=== PATIENT | male | born 1980 | race Caucasian/White ===

== ENCOUNTER 2022-02-17 15:59 | Emergency (ER) | payer OTHER, SELFPAY ==
[2022-02-17 16:12] VITALS: BP 150/83; PULSE 85; RESP 16; TEMP 36.8; O2SAT 98
--- NOTE | 2022-02-17 16:12 | ED.URI ---
HPI - URI/Sore Throat General Chief Complaint: Upper Respiratory Infection Stated Complaint: Cough,Headache Time Seen by Provider: 02/17/22 16:28 Source: patient and RN notes reviewed Mode of arrival: ambulatory Limitations: no limitations History of Present Illness HPI Narrative: 41-year-old male presents concern for 2 week history of cough. He reports trying multiple [id number] medications without relief. Reports violent coughing that keeps him awake at night. He denies fever, aches chills, sweats. MD elicited complaint: cough Related Data Home Medications Medication Instructions Recorded Confirmed fluoxetine 10 mg capsule 10 mg PO DAILY 02/17/22 02/17/22 hydrocodone 7.5 mg-acetaminophen 1 tablet PO Q8-10H PRN Back Pain 02/17/22 02/17/22 325 mg tablet pantoprazole 40 mg tablet,delayed 40 mg PO DAILY 02/17/22 02/17/22 release Allergies Allergy/AdvReac Type Severity Reaction Status Date / Time No Known Allergies Allergy Verified 02/17/22 16:12 Review of Systems Review of Systems: CONSTITUTIONAL: Reports malaise. Denies chills, sweats, or fever. EYES: Denies visual changes, redness, or discharge. ENT: Denies rhinorrhea, congestion, sinus pain, otalgia and sore throat. CARDIOVASCULAR: Denies chest pain, palpitations, or edema. RESPIRATORY: Reports persistent cough. Denies dyspnea. GASTROINTESTINAL: Denies abdominal pain, nausea, vomiting, diarrhea SKIN: Denies rash or itching. MUSCULOSKELETAL: Denies myalgia. NEUROLOGIC: Reports headache. All systems reviewed & are unremarkable except as noted in HPI and below [facility] Family History Family History (Updated 12/26/17 @ 16:35 by DOCTOR UNKNOWN) Father Family history of pancreatic cancer Family history of chronic obstructive pulmonary disease Family history of lung cancer Grandparent Diabetes mellitus Other Family history of allergic disorder Family history of cardiovascular disease Social History Social History Smoking status: Never smoker Second hand tobacco smoke exposure: No Alcohol intake: current Comments At time of signature, agree with nursing past medical, surgical, social and family history. There is no relevant family history pertinent to the presenting complaint Exam Narrative: GENERAL: Nontoxic-appearing and in no acute distress. HEAD: Normocephalic EYES: PERRLA, conjunctivae clear ENT: Nares clear, turbinates edematous and erythematous, clear discharge. Mucous membranes moist. TM pearly carpio with dull light reflex bilaterally; no tragal tenderness. Oropharynx not erythematous without lesions. Tonsils not enlarged and without exudate, no drooling, no hoarseness, no trismus, uvula midline. NECK: Supple. No lymphadenopathy CHEST: Clear to auscultation, breath sounds equal. No wheezing, rhonchi, rales, or stridor. No respiratory distress, speaks in full sentences. Upper airway congestion with cough noted HEART: Regular rate and rhythm. No murmur heard. SKIN: Warm, dry, no rash. NEURO: Alert and oriented x3. PSYCH: Normal mood and affect Course Course Emergency Course: Patient is aware of diagnosis, understands and agrees to treatment plan. Anticipatory guidance given. Patient agrees to follow-up as directed and is aware of reasons to seek care at the emergency department. Portions of this record may have been created with voice recognition software Level of Care: Express Care Visit Vital Signs Vital signs: Reviewed. MDM - URI/Sore Throat MDM Narrative Medical decision making narrative: Differential diagnosis considered: Mcbride virus, strep pharyngitis, allergic rhinitis, upper respiratory tract infection, sinusitis, rhinosinusitis, nasopharyngitis. viral pharyngitis, otitis media, otitis externa, pneumonia, bronchitis, viral cough syndrome, viral syndrome, and influenza. Exam findings show no acute concerns or changes; patient is non-toxic appearing and is in no distress. Patient is appropriate for outp
[2022-02-17 16:13] VITALS: BP 150/83; PULSE 85; RESP 16; TEMP 36.8; O2SAT 98
== END 2022-02-17 16:37 | disposition home or self-care (01) ==
PROVIDERS: Emergency Provider Nurse Practitioner; PCP Nurse Practitioner Family
DX: J06.9 Acute upper respiratory infection, unspecified (principal); K21.9 Gastro-esophageal reflux disease without esophagitis; F41.9 Anxiety disorder, unspecified; F32.A Depression, unspecified; Z86.16 Personal history of COVID-19
CPT/HCPCS: 99213; G0463

== ENCOUNTER 2024-07-02 13:45 | Emergency (ER) | payer OTHER, SELFPAY ==
--- OUTSIDE RECORDS SUMMARY | 2024-07-02 13:50 | XMS_ITS | Clinical Summary ---
Author Organization [facility] [place] Address [address] [place] [address] Care Team Providers Care Carrier Blower Name Role Phone Paradise Lombardi RENEE Primary Care Provider [phone] Allergies No known active allergies Medications Vitamin D3 (VITAMIN D) 50 mcg tablet Take 1 tablet (50 mcg total) by mouth daily. Active multi vitamin/minerals (THERA-M ENHANCED) tablet Take 1 tablet by mouth daily. Active naloxone (NARCAN) 4 MG/0.1ML nasal spray 1 spray by Nasal route as needed for Opioid reversal. may repeat every 2 to 3 minutes in alternating nostrils until medical assistance becomes available 1 each 11/11/19 24 025 Active Additional Information Patient not taking.Reported on 04/20/2024 BONE STIMULATOR, DME,Indications:S renetta instabilities of lumbar region Wear 4 hours daily. Can break up into multiple sessions totaling 4 hours. 1 Device 02/15/19 25 Active Misc. Devices MiscIndications:S renetta instabilities of lumbar region 1 each by Does not apply route continuous. LSO for continuous wear while ambulating or up in chair. 1 each 02/15/19 25 Active calcium-magnesium -zinc 333-133-5 MG Tab Take 1 tablet by mouth daily. Active orphenadrine ER (NORFLEX) 100 MG TABLET SR 12 HR 12 hr tabletIndications :S/P lumbar spinal fusion Take 1 tablet (100 mg total) by mouth 2 (two) times daily as needed. 60 tablet 1 04/09/19 25 Active FLUoxetine (PROZAC) 40 MG capsuleIndication s:Current moderate episode of major depressive disorder without prior episode (CMS/HCC),Anger,A nxiety Take 2 capsules (80 mg total) by mouth daily. 180 capsule 3 04/21/19 25 Active phentermine (ADIPEX-P) 37.5 MG tabletIndications :Class 1 obesity due to excess calories with serious comorbidity and body mass index (BMI) of 31.0 to 31.9 in adult Take 1 tablet (37.5 mg total) by mouth every morning before breakfast. 30 tablet 07/03/19 25 Active HYDROcodone-aceta minophen (NORCO) 5-325 MG tabletIndications :Chronic Pain Take 1 tablet by mouth every 8 (eight) hours as needed (severe pain). Indications: Chronic Pain Twenty-one tablets. 60 tablet 07/03/19 25 Active phentermine (ADIPEX-P) 37.5 MG tabletIndications :Class 1 obesity due to excess calories with serious comorbidity and body mass index (BMI) of 31.0 to 31.9 in adult Take 1 tablet (37.5 mg total) by mouth every morning before breakfast. 30 tablet 04/25/19 25 025 Discontin ued(Reord er) HYDROcodone-aceta minophen (NORCO) 5-325 MG tabletIndications :Chronic Pain Take 1 tablet by mouth every 8 (eight) hours as needed (severe pain). Indications: Chronic Pain Twenty-one tablets. 60 tablet 05/25/19 25 025 Discontin ued(Reord er) phentermine (ADIPEX-P) 37.5 MG tabletIndications :Class 1 obesity due to excess calories with serious comorbidity and body mass index (BMI) of 31.0 to 31.9 in adult Take 1 tablet (37.5 mg total) by mouth every morning before breakfast. 30 tablet 06/05/19 25 025 Discontin ued(Reord er) HYDROcodone-aceta minophen (NORCO) 5-325 MG tabletIndications :Chronic Pain Take 1 tablet by mouth every 8 (eight) hours as needed (severe pain). Indications: Chronic Pain Twenty-one tablets. 60 tablet 06/14/19 25 025 Discontin ued(Reord er) Active Problems Problem Noted Date Diagnosed Date S/P lumbar laminectomy 04/09/2024 S/P lumbar spinal fusion 03/28/2024 Cervicalgia 01/11/2024 Spinal stenosis of cervical region 01/11/2024 Cubital tunnel syndrome on left 10/19/2023 Numbness and tingling in left arm 08/24/2023 Left elbow pain 08/24/2023 Paresthesia of hand, bilateral 08/24/2023 Class 1 obesity due to exces s calories with serious comorbidity and body mass index (BMI) of 31.0 to 31.9 in adult 11/08/2022 Hemorrhoids, unspecified hemorrhoid type 023 Dyslipidemia 11/08/2022 Low serum testosterone 09/01/2022 Skin lesions 04/09/2022 Spondylolisthesis of lumbar region 11/02/2021 Pars defect of lumbar spine 11/02/2021 Spinal instabilities of lumbar region 11/02/2021 Other intervertebral disc degeneration, lumbar r egion 11/02/2021 Radiculopathy, lumbar region 11/02/2021 Myelopathy ([facility]) 11/02/2021 Anger 05/17/2021 Gastroesophageal reflux dise ase, unspecified whether esophagitis present 05/17/2021 B12 deficiency 05/17/2021 Lumbar spondylosis 07/24/2020 Overview (05/14/2021): Last Assessment & Plan: Lumbar spondylosis is demonstrated on x-ray at L4-5 and L5-S1 Protrusion of intervertebral disc of lumbosacral region 05/15/2020 Closed displaced fracture of base of fifth metacarpal bone of right hand with malunion, subsequent encounter 05/15/2020 Vitamin D deficiency 04/29/2020 Anxiety 04/29/2020 Current moderate episode of major depressive disorder without prior episode 04/29/2020 Chronic midline low back pain without sciatica 0 04/29/2020 Chronic neck pain 04/29/2020 History of hernia surgery 04/29/2020 Hx of fracture of clavicle 04/29/2020 Resolved Problems Problem Noted Date Diagnosed Date Resolved Date S/P lumbar fusion 03/27/2024 05/17/2024 Foraminal stenosis of lumbar region 11/02/2021 05/17/2024 Erectile dysfunction, unspec ified erectile dysfunction type 05/05/2020 04/20/2024 Encounter for medical examin ation to establish care 04/29/2020 05/05/2020 Class 1 obesity due to exces s calories without serious comorbidity with body mass index (BMI) of 33.0 to 33.9 in adult 04/29/2020 Encounters Date Type Department Care Team Description 05/24/2024 Orders Only [facility] Family & Internal Medicine [address] [phone] Paradise Lombardi FNP 05/23/2024 MyChart Message Enc [facility] Family & Internal [address] [phone] Paradise Lombardi FNP Pain med 05/21/2024 MyChart Message Enc [facility] [address], [address] [place] [address] Ryan [facility] Provider Letter 05/18/2024 Telephone [facility] [address] [place] [address] Nicole Robins LATHE SPOTTER Results 05/18/2024 [facility] [address], [address] [place] [address] Nicole Robins LATHE SPOTTER Follow Up Call 05/17/2024 11:14 AM CDT - 05/17/2024 11:59 PM CDT Hospital Encounter [facility] [address] [place] [address] Nicole Robins, LATHE SPOTTER Discharge Disposition: Home or Self Care (Routine Discharge) 05/17/2024 10:40 AM CDT [facility] [address] [place] [address] Nicole Robins, LATHE SPOTTER Post Operative 05/17/2024 Travel 05/09/2024 Telephone [facility] Family & Internal [address] [phone] Paradise Lombardi FNP Lab Results 04/30/2024 Scan [facility] Scanned, [facility] 04/30/[address], [address] [place] [phone] Nicole Robins APRN Question 04/24/2024 9:20 AM CDT Laboratory Only [facility] Family Internal [address] [address] Paradise Lombardi FNP 04/24/2024 - 04/24/2024 11:59 PM CDT Hospital Encounter [facility] [address] Paradise Lombardi FNP Discharge Disposition: Home or Self Care (Routine Discharge) 04/24/2024 Travel 04/20/2024 1:40 PM ACID TANK CLEANER Office Visit [facility] Family & Internal [address] [address] Paradise Lombardi FNP Depression (Patient would like to discuss increasing fluoxetine dosage or alternative therapies.); Anxiety; Low Testosterone (Patient states he needs to follow up with urology still.) 04/20/2024 Travel 04/19/2024 Telephone [facility] - [address], [address] [place] [phone] Gage Amaya MD Question 04/17/2024 Scan [facility] Scanned, [facility] 04/16/2024 Telephone [facility] [address], [address] [place] [address] Nicole Robins APRN Referral; Information 04/09/2024 1:40 PM ACID TANK CLEANER Office Visit [facility] [address], [address] [place] [address] Nicole Robins, LATHE SPOTTER Post Operative 04/09/2024 Travel from Last 3 Months Immunizations Immunization Administration Dates Next Due Fluzone 6 Months+ Quad (0.5 mL Prefilled Syringe ) 04/06/2022 Influenza Adult (Generic) 12/06/2019,12/11/2018 Td 09/11/2006 Tdap (Generic) 03/29/2014 Family History Medical History Relation Comments COPD Father Cancer Father Pancreas Disease Father Relation Status Comments Daughter 1 Alive Oldest- Attentio n deficit hyperactivity disorder Daughter 2 Alive Father Alive throat, lunch ca ncer Mother Alive Sister Alive Son Alive Social History Tobacco Use Types Packs/Day Years Used Date Smoking Tobacco: Never Passive Smoke Exposure: Never Smokeless Tobacco: Never Tobacco Cessation:Counseling Given: No Alcohol Use Standard Drinks/Week Comments Yes 10 (1 standard drink = 0.6 oz pu re alcohol) social 1 x week [facility] Utilities Answer Date Recorded In the past 12 months has e [employer], gas, oil, or water [employer] threatened to shut off services in your home? No 03/27/2024 Humiliation, Afraid, Rape, and Kick questionnair e Answer Date Recorded Within the last year, have y ou been afraid of your partner or ex-partner? No 03/27/2024 Within the last year, have y ou been humiliated or emotionally abused in other ways by your partner or ex-partner? No Within the last year, have y ou been kicked, hit, slapped, or otherwise physically hurt by your partner or ex-partner? No 03/27/2024 Within the last year, have y ou been raped or forced to have any kind of sexual activity by your partner or ex-partner? No 03/27/2024 Overall Financial Resource Strain (CARDIA) Answe r Date Recorded How hard is it for you to pa y for the very basics like food, housing, medical care, and heating? Not hard at all 03/27/2024 PHQ-2 Answer Date Recorded Patient Health Questionnaire-2 Score 1 04/20/2024 Hunger Vital Sign Answer Date Recorded Within the past 12 months, y ou worried that your food would run out before you got the money to buy more. Never true 03/27/19 25 Within the past 12 months, t he food you bought just didn't last and you didn't have money to get more. Never true 03/27/2024 PRAPARE - Transportation Answer Date Re corded In the past 12 months, has l ack of transportation kept you from medical appointments or from getting medications? No 03/17 In the past 12 months, has l ack of transportation kept you from meetings, work, or from getting things needed for daily living? No 03/27/2024 Housing Stability Vital Sign Answer Douglas e Recorded In the last 12 months, was t here a time when you were not able to pay the mortgage or rent on time? No 03/27/2024 In the past 12 months, how m any times have you moved where you were living? 0 03/27/2024 At any time in the past 12 [facility], were you homeless or living in a halfway (including now)? No 03/27/2024 Sex and Gender Information Value Date Recorded Sex Assigned at Male 03/13/2024 1:00 PM ACID TANK CLEANER Legal Sex Male 5:23 PM CDT Gender Identity Male 04/20/2024 1:53 PM ACID TANK CLEANER Sexual Orientation Not on file Last Filed Vital Signs Vital Sign Reading Time Taken Comments Blood Pressure 139/84 05/17/2024 10:51 AM CDT Pulse 67 05/17/2024 10:51 AM CDT Temperature 36.7 C (98 F) 05/17/2024 10:51 AM CDT Respiratory Rate 18 04/20/2024 1:55 PM ACID TANK CLEANER Oxygen Saturation 97% 05/17/2024 10: 51 AM CDT Inhaled Oxygen Concentration - - Weight 108.3 kg (238 lb 11.2 oz) 2024 10:51 AM CDT Height 180.3 cm (5' 11 ) 05/17/2024 10: 51 AM CDT Body Mass Index 33.29 05/17/2024 10:51 AM CDT Plan of Treatment Upcoming Encounters Date Type Department Care Team (Late st Contact Info) Description 07/24/2024 2:00 PM CDT Office Visit [facility] Family & Internal Medicine - [address] [place] [address] Kelsy Paradise, RENEE [facility] [place] [address] Health Maintenance Due Date Last Done Comments Annual Physical 02/19/1984 Hepatitis B Vaccines (1 of 3 - 19+ 3-dose series) 02/19/2000 DTaP, Tdap and Td Vaccines ( 2 - Td or Tdap) 03/29/2024 03/29/2014, 09/11/2006 COVID-19 Vaccine (2023-2 5 season) 2024 Postponed from 10/15 (Patient Refused) Hepatitis C Completed 06/05/2022 PHQ-2 (Physician [place]) Completed 04/20/2024 HPV Vaccines Aged Out No longer eligi ble based on patient's age to complete this topic Meningococcal B Vaccine Aged Out No l onger eligible based on patient's age to complete this topic Meningococcal Vaccine Aged Out No viktor erd eligible based on patient's age to complete this topic Pneumococcal Vaccine: Pediatrics (0 to 5 Years) and At-Risk Patients (6 to 49 Years) Aged Out No longer eligible b ased on patient's age to complete this topic RSV Immunizations Under 20 Months Aged Out No longer eligible b ased on patient's age to complete this topic Goals Goal Patient Goal Type Associated Problems Recent Progress Patient-Stated? Author Family - family caregiver with be involved in care transitions and discharge planning Lifestyle No Gunner Renner, RN Medical Devices Implanted Type Area Potato Grader Device Identifier Shelf Expiration Date Model / Serial / Lot Putty Emely Matrix Dbm/Dbf Bone 6cc - [id number] Implanted:Qty : 1 on 03/26/2024 by Gage Amaya MD at [facility] Bone N/A: Spine Lumbar [employer] [id number] 12/01/2025 [id number] / [id number] / Medtronic Cataly Interbody System Pl40 Implanted:Qty : 1 on 03/26/2024 by Gage Amaya MD at [facility] Cage N/A: Spine Lumbar [employer] [id number] 10/26/2031 [id number] / / [id number] Description:L4-5 4.75 X 35 Mm Mayo Implanted:Qty : 1 on 03/26/2024 by Gage Amaya MD at [facility] Mayo Left: Spine Lumbar [employer] [id number] / / 4.75 X 40 Mm Mayo Implanted:Qty : 1 on 03/26/2024 by Gage Amaya MD at [facility] Mayo Right: Spine Lumbar [employer] [id number] / / 7.5 X 40 Mm Screws Implanted:Qty : 2 on 03/26/2024 by Gage Amaya MD at [facility] Screw N/A: Spine Lumbar [employer] [id number] / / 7.5 X 45 Mm Screws Implanted:Qty : 2 on 03/26/2024 by Gage Amaya MD at [facility] Screw N/A: Spine Lumbar [employer] [id number] / / Stimulan Beads Implanted:Qty : 1 on 03/26/2024 by Gage Amaya MD at [facility] N/A: Spine Lumbar [employer] [id number] 05/14/2026 [id number] / / [id number] Description:MIXED WITH TOBRA MYCIN AND VANCOMYCIN Voyager Set Screws Implanted:Qty : 4 on 03/26/2024 by Gage Amaya MD at [facility] N/A: Spine Lumbar [employer] [id number] / / Procedures Procedure Name Priority Date/Time Associated Diagnosis Comments XR LUMB SPINE AP+LAT ONLY Routine 05/17/2024 11:33 AM CDT S/P lumbar spinal fusion COLLECTION VENOUS BLOOD VENIPUNCTURE Routine 04/24/2024 9:45 AM CDT Anxiety Class 1 obesity due to excess calories with serious comorbidity and body mass index (BMI) of 33.0 to 33.9 in adult Dyslipidemia Current moderate episode of major depressive disorder without prior episode (CMS/HCC) Low serum testosterone B12 deficiency Vitamin D deficiency CBC W/DIFF AUTOMATED Routine 04/24/2024 9:45 AM CDT Current moderate episode of major depressive disorder without prior episode (CMS/HCC) Dyslipidemia LIPID PANEL Routine 04/24/2024 9:45 AM CDT Current moderate episode of major depressive disorder without prior episode (CMS/HCC) Dyslipidemia VITAMIN D, 25 OH Routine 04/24/2024 9:45 AM CDT Current moderate episode of major depressive disorder without prior episode (CMS/HCC) Vitamin D deficiency URIC ACID BLOOD Routine 04/24/2024 9:45 AM CDT Current moderate episode of major depressive disorder without prior episode (CMS/HCC) Dyslipidemia COMPREHENSIVE METABOLIC PANEL Routine 04/24/2024 9:45 AM CDT Current moderate episode of major depressive disorder without prior episode (CMS/HCC) Dyslipidemia URINALYSIS, AUTO, COMPLETE Routine 04/24/2024 9:45 AM CDT Current moderate episode of major depressive disorder without prior episode (CMS/HCC) Dyslipidemia VITAMIN B-12 Routine 04/24/2024 9:45 AM CDT Current moderate episode of major depressive disorder without prior episode (CMS/HCC) Anxiety B12 deficiency FOLIC ACID SERUM Routine 04/24/2024 9:45 AM CDT Current moderate episode of major depressive disorder without prior episode (CMS/HCC) Anxiety B12 deficiency MAGNESIUM Routine 04/24/2024 9:45 AM CDT Current moderate episode of major depressive disorder without prior episode (CMS/HCC) Anxiety PROLACTIN Routine 04/24/2024 9:45 AM CDT Current moderate episode of major depressive disorder without prior episode (CMS/HCC) Low serum testosterone THYROID STIM HORMONE TSH Routine 04/24/2024 9:45 AM CDT Anxiety Class 1 obesity due to excess calories with serious comorbidity and body mass index (BMI) of 33.0 to 33.9 in adult Dyslipidemia THYROXINE, FREE (FT4) Routine 04/24/2024 9:45 AM CDT Anxiety Class 1 obesity due to excess calories with serious comorbidity and body mass index (BMI) of 33.0 to 33.9 in adult Dyslipidemia THYROID PEROXIDASE ANTIBODY Routine 04/24/2024 9:45 AM CDT Anxiety Class 1 obesity due to excess calories with serious comorbidity and body mass index (BMI) of 33.0 to 33.9 in adult Dyslipidemia FREE T3 Routine 04/24/2024 9:45 AM CDT Anxiety Class 1 obesity due to excess calories with serious comorbidity and body mass index (BMI) of 33.0 to 33.9 in adult Dyslipidemia TESTOSTERONE, FREE & TOTAL Routine 04/24/2024 9:30 AM CDT Current moderate episode of major depressive disorder without prior episode (CMS/HCC) HEPATITIS C ANTIBODY W/RFX TO HCV RNA Routine 06/05/2022 8:16 AM CDT Encounter for hepatitis C screening test for low risk patient from Last 3 Months or Most Recently Relevant to Health Maintenance Results * XR LUMB SPINE AP+LAT ONLY (05/17/2024 11:33 AM CDT) Anatomical Region Laterality Modality Spine Radiographic Jess ging 05/18/2024 8:13 AM CDT Impressions 05/18/2024 8:13 AM CDT =====IMPRESSION:===== 1. Posterior/interbody fusion L4-5 without evidence of complication. Ordered By: NICOLE ROBINS Interpreted By: Geoffrey Estrada MD, 05/18/2024 8:13 AM Narrative 05/18/2024 8:13 AM CDT [address] [address] Examination: Lumbar Spine 2 views Exam date/time: 05/17/2024 11:18 AM Reason For Exam: sp lumbar fusion Comparison: 03/27/2024 Views: AP, lateral and cone-down detailed lateral radiographs of the lumbar spine were obtained Findings: Posterior skin clips and drainage catheter have been removed. There is evidence of posterior/interbody fusion L4-5. There is no evidence of complication involving the hardware. There is minimal residual anterior translation of L4 on L5 unchanged. No evidence of acute fracture or focal lytic bone destructive lesion. Procedure Note Geoffrey Estrada MD - 05/18/[address] [address] Examination: Lumbar Spine 2 views Exam date/time: 05/17/2024 11:18 AM Reason For Exam: sp lumbar fusion Comparison: 03/27/2024 Views: AP, lateral and cone-down detailed lateral radiographs of thelumbar spine were obtained Findings: Posterior skin clips and drainage catheter have been removed.There is evidence of posterior/interbody fusion L4-5. There is no evidenceof complication involving the hardware. There is minimal residual anteriortranslation of L4 on L5 unchanged. No evidence of acute fracture or focallytic bone destructive lesion. =====IMPRESSION:===== 1. Posterior/interbody fusion L4-5 without evidence of complication. Ordered By: NICOLE ROBINS Interpreted By: Geoffrey Estrada MD, 05/18/2024 8:13 AM Nicole Rafael Robins LATHE SPOTTER [facility] Final Resu lt * THYROID PEROXIDASE ANTIBODY (04/24/2024 9:45 AM CDT) THYROID PEROXIDASE MICROSOMAL AB 34 IU/ML 04/26/2024 10:56 AM CDT [facility] Comment: NEGATIVE: < 25 IU/ML EQUIVOCAL: 25 to 35 IU/ML POSITIVE: > 35 IU/ML 04/24/2024 9:45 AM CDT Paradise Kelsy CLINICAL OPERATIONS MANAGER LABORATORY Final Result [facility] [address] [place] [address], [place] [phone] [phone] * (ABNORMAL) URINALYSIS (04/24/2024 9:45 AM CDT) COLOR (U) YELLOW 04/24/2024 5:05 PM CDT [facility] TRANSPARENCY CLEAR CLEAR 04/24/2024 5:05 PM CDT [facility] SPECIFIC GRAVITY (U) 1.025 1.003 - 1.040 04/24/2024 5:05 PM CDT [facility] U PH 6.0 5.0 - 9.0 04/24/2024 5:05 PM CDT [facility] PROTEIN RANDOM (U) NEGATIVE NEGATIVE 04/24/2024 5:05 PM CDT [facility] GLUCOSE (U) NEGATIVE NEGATIVE 04/24/2024 5:05 PM CDT [facility] KETONES MG/DL (U) NEGATIVE NEGATIVE 04/24/2024 5:05 PM CDT [facility] BILIRUBIN (U) NEGATIVE NEGATIVE 04/24/2024 5:05 PM CDT [facility] BLOOD (U) NEGATIVE NEGATIVE 04/24/2024 5:05 PM CDT [facility] UROBILINOGEN 0.2 0.0 - 2.0 EU/DL 04/24/2024 5:05 PM CDT [facility] NITRITES NEGATIVE NEGATIVE 04/24/2024 5:05 PM CDT [facility] LEUKOCYTES (U) NEGATIVE NEGATIVE 04/24/2024 5:05 PM CDT [facility] RBC/HPF 0-3 0 - 3 /HPF 04/24/2024 5:05 PM CDT [facility] WBC/HPF 0-3 0 - 3 /HPF 04/24/2024 5:05 PM CDT [facility] EPI/HPF 0-3 /HPF 04/24/2024 5:05 PM CDT [facility] BACTERIA (U) TRACE(A) NONE SEEN 04/24/2024 5:05 PM CDT [facility] MUCUS FEW 04/24/2024 5:05 PM CDT [facility] URINE SPECIMEN OBTAINED BY CLEAN CATCH PROCEDURE / Unknown 04/24/2024 9:45 AM CDT Paradise SANTIAGOP URINE ORDERABLES Final Result Performing Organization Address City/[facility]/ZIP Co de Phone Number [address] [address], * VITAMIN B-12 (04/24/2024 9:45 AM CDT) VITAMIN B12 S/P/B 888 193 - 986 PG/ML 04/24/2024 4:14 PM CDT [facility] 04/24/2024 9:45 AM CDT Paradise Lombardi [facility] Final Result Performing Organization Address City/[facility]/ZIP Co de Phone Number [id number] [place] [address], [place] [phone] * FREE T3 (04/24/2024 9:45 AM CDT) FREE T3 2.6 2.2 - 3.9 PG/ML 04/24/2024 6:26 PM CDT [facility] 04/24/2024 9:45 AM CDT Paradise Lombardi [facility] Final Result [facility] [address] [place] [address], [place] [phone] [id number] * (ABNORMAL) COMPREHENSIVE METABOLIC PANEL (04/24/2024 9:45 AM CDT) Pathologist [facility] SODIUM S/P/B 142 136 - 145 MMOL/L 04/24/2024 4:14 PM CDT [facility] POTASSIUM S/P/B 4.5 3.5 - 5.1 MMOL/L 04/24/2024 4:14 PM CDT [facility] CHLORIDE S/P/B 106 98 - 107 MMOL/L 04/24/2024 4:14 PM CDT [facility] CO2 27.6 21 - 32 MMOL/L 04/24/2024 4:14 PM CDT [facility] GLUCOSE 112(H) 70 - 99 MG/DL 04/24/2024 4:14 PM CDT [facility] BUN 17 7 - 18 MG/DL 04/24/2024 4:14 PM CDT [facility] CREATININE S/P/B 0.92 0.70 - 1.30 MG/DL 04/24/2024 4:14 PM CDT [facility] CALCIUM S/P/B 9.0 8.4 - 10.5 MG/DL 04/24/2024 4:14 PM CDT [facility] BILIRUBIN TOTAL S/P/B 0.4 0.2 - 1.0 MG/DL 04/24/2024 4:14 PM T [facility] ALKALINE PHOSPHATASE S/P/B 88 45 - 115 U/L 04/24/2024 4:14 PM T [facility] [facility] AST 16 15 - 37 U/L 04/24/2024 4:14 PM CDT [facility] ALT 32 16 - 63 U/L 04/24/2024 4:14 PM T [facility] TOTAL PROTEIN S/P/B 6.9 6.4 - 8.2 G/DL 04/24/2024 4:14 PM T [facility] ALBUMIN S/P/B 3.9 3.4 - 5.0 G/DL 04/24/2024 4:14 PM T [facility] ANION GAP 8.4 5 - 15 MMOL/L 04/24/2024 4:14 PM T [facility] Comment:REFERENCE RANGE NOT ESTABLISHED OSMOLALITY (CALC) 296 MOSM/KG 025 4:14 PM T [facility] Comment:REFERENCE RANGE NOT ESTABLISHED GFR ESTIMATE >90 >90 ML/MIN/1. 73 M2 04/24/2024 4:14 PM [facility] GFR NOTES GFR REFERENCE S: 04/24/2024 4:14 PM T [facility] Comment: THE ESTIMATED GFR IS CALCULATED USING THE 2020 CKD-EPI EQUATION. THE FOLLOWING CATEGORIES FOR GRADING RENAL FUNCTION ARE RECOMMENDED BY THE INTERNATIONAL SOCIETY OF NEPHROLOGY (KDIGO 2012 CLINICAL PRACTICE GUIDELINE). G1,NORMAL OR HIGH: >89 ml/min/1.73 m2 G2,MILDLY DECREASED: 60-89 ml/min/1.73 m2 G3A,MILDLY TO MODERATELY DECREASED: 45-59 ml/min/1.73 m2 G3B,MODERATELY TO SEVERELY DECREASED: 30-44 ml/min/1.73 m2 G4,SEVERELY DECREASED: 15-29 ml/min/1.73 m2 G5,KIDNEY FAILURE: <15 ml/min/1.73 m2 04/24/2024 9:45 AM CDT Paradise Lombardi CLINICAL OPERATIONS MANAGER LABORATORY Final Result [facility] [address] [place] [address], * (ABNORMAL) LIPID PANEL (04/24/2024 9:45 AM CDT) [facility] CHOLESTEROL 234(H) <200 MG/DL 04/24/2024 4:14 PM CDT [facility] TRIGLYCERIDES 94 <150 MG/DL 04/24/2024 4:14 PM CDT [facility] HDL 52 >40 MG/DL 04/24/2024 4:14 PM CDT [facility] LDL-C 163(H) <100 MG/DL 04/24/2024 4:14 PM CDT [facility] VLDL CALCULATION 19 5 - 28 MG/DL 04/24/2024 4:14 PM CDT [facility] CHOL/HDL RATIO 4.5(H) 0.0 - 4.0 04/24/2024 4:14 PM CDT [facility] LDL/HDL 3.1(H) 0.41 - 2.13 04/24/2024 [id number]|2024-07-02 13:53:00|2024-07-02 13:53:00|ED_ITS|[employer]|Health Information Management|[id number]|"HPI - URI/Sore Throat General Chief Complaint: Upper Respiratory Infection Stated Complaint: URI Time Seen by Provider: 07/02/24 13:45 Source: patient Mode of arrival: ambulatory Limitations: no limitations History of Present Illness HPI Narrative: Patient is a 44-year-old male who presents with 4 days of chest congestion with productive cough and sore throat that started 2 days ago. Cold sweats and body aches started today. History of childhood asthma and bronchitis. Has taken Mucinex with no relief. Related Data Home Medications Medication Instructions Recorded Confirmed Last Taken Type fluoxetine 10 mg capsule 10 mg PO DAILY 02/17/22 02/17/22 Unknown History hydrocodone 7.5 mg-acetaminophen 1 tablet PO Q8-10H PRN Back Pain 02/17/22 02/17/22 Unknown History 325 mg tablet fluoxetine 20 mg capsule mg 07/02/24 Unknown History phentermine 37.5 mg tablet mg 07/02/24 Unknown History Allergies Allergy/AdvReac Type Severity Reaction Status Date / Time No Known Allergies Allergy Verified 07/02/24 13:59 Review of Systems Review of Systems: All systems reviewed & are unremarkable except as noted in HPI and below Constitutional: Constitutional: Reports chills, Denies fatigue, Denies fever(s), Denies headache(s), Denies malaise and Denies weakness Eyes: Eyes: Denies blurry vision, Denies itchy eyes and Denies loss of vision ENT: Denies otalgia, Denies headache(s), Reports nasal congestion, Denies sinus pain and Reports sore throat Cardiovascular: Cardiovascular: Denies chest pain, Denies irregular heart rhythm and Denies dyspnea Respiratory: Respiratory: Reports cough and Denies dyspnea Gastrointestinal: Gastrointestinal: Denies abdominal pain, Denies diarrhea, Denies nausea and Denies vomiting Musculoskeletal: Musculoskeletal: Denies back pain, Reports myalgias and Denies arthralgias Integumentary/Breasts: Skin/Breast: Denies pruritus and Denies rash Neurologic: Denies headache(s), Denies loss of vision and Denies weakness Psychiatric: Psychiatric: Reports no additional psychiatric complaints Endocrine: Endocrine: Denies fatigue Allergic/Immunologic: Allergic/Immunologic: Denies itchy eyes PMFSH Family History Family History Father Family history of pancreatic cancer Family history of chronic obstructive pulmonary disease Family history of lung cancer Grandparent Diabetes mellitus Other Family history of allergic disorder Family history of cardiovascular disease Social History Social History Smoking status: Never smoker Second hand tobacco smoke exposure: No Alcohol intake: current Comments At time of signature, agree with nursing past medical, surgical, social and family history. There is no relevant family history pertinent to the presenting complaint. Exam Const: General: cooperative, healthy appearing, comfortable, no acute distress and well nourished Nutritional Appearance: well nourished Orientation/consciousness: patient oriented x3 Limitations: no limitations HENMT: Head: normal to inspection, normocephalic and atraumatic Ears: hearing grossly normal bilaterally, external ears normal, TM's normal bilaterally, EAC's normal and no periauricular adenopathy Face/Nose/Sinus: Normal external nose present, Abnormal mucous membranes and turbinates present erythematous bilateral and diffuse, normal facial exam, sinuses nontender and face symmetric Face and sinus: normal facial exam, sinuses nontender and face symmetric Mouth: Yes Normal oral and palatal mucosa present, Yes lip normal, Yes tongue normal, Yes Normal salivary glands and ducts present, Yes oropharynx normal and Yes moist mucous membranes Teeth and gingiva: dentition normal Throat: posterior oropharynx normal, tonsils normal and uvula midline Eyes: General: appearance normal, both eyes and all related structures Alignment and Position: alignment normal and position normal Periorbital: periorbital findings normal Eyelids: eyelids normal Pupils: Equal, round and reactive pupils present Neck: Neck: normal visual inspection, full ROM, no lymphadenopathy and supple Chest: Chest palpation & inspection: normal inspection of the chest and normal palpation of entire chest wall Resp: Effort & Inspection: normal respiratory effort, able to speak in complete sentences and Actively coughing wet Auscultation: clear to auscultation bilaterally, no crackles, no rales, no rhonchi and no wheezes Cardio: Rate: tachycardic Rhythm: regular rhythm Heart sounds: S1 normal heart sound present and S2 normal heart sound present GI: Inspection: normal to inspection Skin: General skin exam: normal color and no rashes or lesions noted Neuro: General: patient oriented x3 and moves all extremities Cranial nerves: Yes Equal, round and reactive pupils present Speech: normal speech Gait exam (Neuro): Normal gait present Extrem: General: normal to inspection, full ROM and no edema Psych: Appearance: grossly normal and well kempt Mental Status: mental status grossly normal Speech and movement: Normal speech and movement present Affect: normal affect Attitude: cooperative Thought process: Normal thought process present Course Course Emergency Course: Discharge instructions reviewed with patient, as well as provided in writing per nursing staff. The instructions also include specific and strict return/GO TO THE ER as well as f/u information. All questions have been answered, and the patient deny any further questions with discharge and discharge plan. Portions of this record may have been created with voice recognition software Level of Care: Express Care Visit Vital Signs Vital signs: Vital Signs Temperature 37.1 C 07/02/24 13:59 Pulse Rate 124 H 07/02/24 13:59 Respiratory Rate 18 07/02/24 13:59 Blood Pressure 129/79 07/02/24 13:59 Pulse Oximetry 98 07/02/24 13:59 Oxygen Delivery Room Air 07/02/24 13:59 Temperature 37.1 C 07/02/24 13:59 Pulse Rate 124 H 07/02/24 13:59 Respiratory Rate 18 07/02/24 13:59 Blood Pressure 129/79 07/02/24 13:59 Pulse Oximetry 98 07/02/24 13:59 Oxygen Delivery Room Air 07/02/24 13:59 Reviewed MDM - URI/Sore Throat MDM Narrative Medical decision making narrative: Pt well hydrated appearing, in no respiratory distress, hemodynamically stable. Recommend supportive care. The patient is stable at time of discharge the clinical impression was discussed and the patient was given the opportunity to ask questions, which were addressed as completely as possible given the information available at present. Anticipatory guidance and return to care precautions were discussed and the importance of primary care follow-up was stressed and encouraged. The patient voiced understanding of the plan, indications to return, and the need for follow-up. Exam findings show no acute concerns or changes Patient is appropriate for outpatient treatment and follow-up. Differential diagnosis considered: Mcbride virus, strep pharyngitis, allergic rhinitis, upper respiratory tract infection, sinusitis, rhinosinusitis, nasopharyngitis. viral pharyngitis, otitis media, otitis externa, otitis effusion, foreign body, cerumen impaction, viral syndrome, and influenza. Medical Records Attestation: I reviewed the patient's medical records. Lab Data Attestation: I reviewed the patient's lab results. Labs: Lab Results 07/02/24 Range/Units 14:24 POC Influenza A Ag Negative (Negative) POC Influenza B Ag Negative (Negative) Discharge Plan Discharge Clinical Impression: Acute purulent bronchitis Patient Disposition: Home Condition: Stable Instructions: Acute Bronchitis (ED) Additional Instructions: Take steroids per package instructions. Use Tessalon Perles as needed for cough. Use inhaler with spacer as needed. Other symptomatic treatments include: -Alternate Tylenol and Motrin per package directions for fever or pain: Tylenol 650-1000mg by mouth every 4-6 hours. Do not exceed 4000mg in 24 hours. Advil (Ibuprofen) 600 mg by mouth every 6 hours. Do not exceed 2400mg in 24 hours. 8 AM: Tylenol 11 AM: Ibuprofen 2 PM: Tylenol 5 PM: Ibuprofen 8 PM: Tylenol 11 PM: Ibuprofen 2 AM: Tylenol 5 AM: Ibuprofen -Antihistamine medication such as Benadryl at night and Zyrtec/Claritin/Chelo during the day can help improve symptoms. -Use Flonase twice a day for 5 days then daily to help reduce the inflammation and dry up your sinuses. -You can also use Sudafed or Mucinex. Be sure to drink plenty of water with th daniel medications at least 8 ounces with every dose and it is important to drink 8 to 10 glasses of water per day. Water is a natural decongestant -Eat and drink things that are easy to swallow, like tea or soup, or popsicles. -Oral rinses such as: Salt water gargles and/or may use topical anesthetic (eg. Chloraseptic spray) or lozenges to relieve dryness or throat pain). -Frequent hand washing or hand optical coating technician is one of the best ways to prevent spread of infection. -Using a vaporizer or humidifier at night will also help thin secretions and help with coughing up phlegm. Call your Primary Care Doctor and make a follow-up appointment in 3 days. If your cough worsens, you develop a fever greater than 103, you develop shaking chills, a fast heartbeat, trouble breathing and/or feel you are are breathing much faster than usual, call your Primary Care Doctor or go to the ER. Patient Language: Montenegrin Prescriptions: New benzonatate 100 mg capsule 100 mg PO BID PRN (Reason: cough) Qty: 14 0RF methylprednisolone [Medrol (Ambrosio)] 4 mg tablets,dose pack See Rx Instructions .ROUTE .COMPLEX Qty: 21 0RF Rx Instructions: orally per package directions albuterol sulfate 90 mcg/actuation HFA aerosol inhaler 2 puff inhalation QID PRN (Reason: shortness of breath or wheezing) Qty: 6.7 0RF (DME) Aerochamber MV Spacer See Rx Instructions .Route Qty: 1 0RF Rx Instructions: As directed No Action fluoxetine 10 mg capsule 10 mg PO DAILY hydrocodone-acetaminophen 7.5-325 mg tablet 1 tablet PO Q8-10H PRN (Reason: Back Pain) phentermine 37.5 mg tablet fluoxetine 20 mg capsule Follow-up/Referrals: KELSY,CHICHO HOBSON [Primary Care Provider] - 3 Days Stand Alone Forms: Work/School Release IP Time of Disposition: 14:23 "
--- OUTSIDE RECORDS SUMMARY | 2024-07-02 13:50 | XMS_ITS | Encounter Summary ---
Author Organization [facility] Address [address] [place] [id number] Care Team Providers Care Decommissioning Well Site Manager Name Role Phone Paradise Lombardi RENEE Primary Care Provider [phone] Encounter Details Date Type Department Care Team (Late st Contact Info) Description 11/08/2023 Soluble Systems Message Enc [facility] Pre-Admission Testing [address] [address] Ryan, [facility] Provider surgery Social History Tobacco Use Types Packs/Day Years Used Date Smoking Tobacco: Never Passive Smoke Exposure: Never Smokeless Tobacco: Never Alcohol Use Standard Drinks/Week Comments Yes 10 (1 standard drink = 0.6 oz pu re alcohol) social 1 x week PHQ-2 Answer Date Recorded Patient Health Questionnaire-2 Score 0 08/24/2023 Sex and Gender Information Value Date Recorded Sex Assigned at Male 03/13/2024 1:00 PM GRINDER SET UP OPERATOR Legal Sex Male 5:23 PM CDT Gender Identity Male 04/20/2024 1:53 PM GRINDER SET UP OPERATOR Sexual Orientation Not on file documented as of this encounter Functional Status * Calculated C-SSRS Risk Score (Lifetime/Recent) Answer Date of Assessment Author Status No Risk Indicated 11/11/2023 9:07 AM Niurka Edwards RN Active * [place] Suicide Severity Rating Scale (Screener/Recent Self-Report) Question Answer Date of Assessment Author Status 1. Wish to be (Past 1 Month) No 11/11/2023 9:07 AM Niurka Edwards RN Activ e 2. Non-Specific Active Suicidal Thoughts (Past 1 Month) No 11/11/2023 9:07 AM CDT Niurka Landaverde RN Guevara e 6. Suicidal Behavior (Lifetime) No 11/11/2023 9:07 AM CDT Niurka Landaverde RN Activ e documented as of this encounter Plan of Treatment Upcoming Encounters Date Type Department Care Team (Late st Contact Info) Description 07/24/2024 2:00 PM CDT Office Visit [facility] Family & Internal Medicine - [address] [phone] Paradise Lombardi FNP [address] [place] [id number] documented as of this encounter Visit Diagnoses Not on filedocumented in this encounter Additional Health Concerns Assessment Noted Time PHQ-9 Depression Total Score: 5 04/06/19 23 4:39 PM GRINDER SET UP OPERATOR documented as of this encounter Care Teams Decommissioning Well Site Manager Relationship Specialty Start Date End Date Paradise Lombardi FNP [address] [place] [id number] PCP - General Nurse Practitioner Family 04/29/20 documented as of this encounter
--- OUTSIDE RECORDS SUMMARY | 2024-07-02 13:50 | XMS_ITS | Clinical Summary ---
Author Organization [facility] Address [address] [place] [address] Care Team Providers Care Gray Tender Name Role Phone Paradise Lombardi NP Primary Care Provider [phone] Anika Burks MD Unavailable Allergies No known active allergies Medications buPROPion XL (WELLBUTRIN XL) 300 mg 24 hr tablet 1 Active busPIRone (BUSPAR) 10 mg tablet 1 Active cyclobenzaprine (FLEXERIL) 10 mg tabletIndicatio ns:Muscle Spasm Take 1 tablet (10 mg total) by mouth every 8 (eight) hours as needed for muscle spasms 90 tablet 1 Active gabapentin (NEURONTIN) 400 mg capsule Take 1 capsule (400 mg total) by mouth every 8 (eight) hours 90 capsule 1 Active Additional Information Patient taking differently:400 mg oral Every 8 hours,TAKING 1-2 CAPSULES A DAY, Reported on 12/24/2020 Active Problems Problem Noted Date Diagnosed Date Low back pain without sciatica 07/24/2020 Assessment & Plan (07/24/2020 4:39 PM CDT): Patient is a 10 year history of progressively worsening low back pain associated with a grade 1 spondylolisthesis at L4-5 and lumbar spondylosis at L4-5 and L5-S1. He has had transient migratory numbness in his legs but no sustained sensory loss, weakness or loss of bladder or bowel control. Chiropractic treatment initially helped although no longer helps and anti-inflammatories [id number] do not either. I will obtain a contemporary MRI of the lumbar spine and refer him to Pain Management for consideration lumbar epidural steroid injections. If he does not find sustained relief with lumbar epidural steroid injections, then he will need a neurosurgical referral of his PCPs preference for consideration of a possible fusion or lumbar disc replacement. I will see him back in the office in the medical neurological standpoint on an as-needed basis. Spondylolisthesis, lumbar region 07/24/2020 Assessment & Plan (07/24/2020 4:38 PM CDT): Personal review of x-ray images demonstrates grade 1 spondylolisthesis at L4-5 with lumbar spondylitic changes seen at L4-5 and L5-S1. Lumbar spondylosis 07/24/2020 Assessment & Plan (07/24/2020 4:38 PM CDT): Lumbar spondylosis is demonstrated on x-ray at L4-5 and L5-S1 Surgical History Surgery Date Site/Laterality Comments HERNIA REPAIR ARM SURGERY KNEE SURGERY ORAL SURGERY HAND SURGERY Bilateral WRIST SURGERY Left Medical History Medical History Date Comments Depression PTSD (post-traumatic stress disorder) Family History Medical History Relation Name Comments COPD Father Pancreatitis Father Throat cancer Father No Known Problems Mother No Known Problems Sister Relation Name Status Comments Father Alive Mother Alive Sister Alive Social History Tobacco Use Types Packs/Day Years Used Date Smoking Tobacco: Never Smokeless Tobacco: Never AUDIT-C Answer Date Recorded Q1: How often do you have a drink containing alc ohol? 2-3 times a week 11/07/2020 Q2: How many drinks containi ng alcohol do you have on a typical day when you are drinking? 7 to 9 11/07/2020 Q3: How often do you have si x or more drinks on one occasion? Monthly 11/07/2020 Personal Safety Answer Date Recorded Getting School Help Needed Not on file 02/15 Sex and Gender Information Value Date Recorded Sex Assigned at Not on file Legal Sex Male 11:33 PM BILINGUAL SALES ASSISTANT Gender Identity Not on file Sexual Orientation Not on file Obstetrics History Last Filed Vital Signs Vital Sign Reading Time Taken Comments Blood Pressure 126/80 02/02/2021 8:48 AM BILINGUAL SALES ASSISTANT Pulse 66 02/02/2021 8:48 AM BILINGUAL SALES ASSISTANT Temperature 36.5 C (97.7 F) 02/02/2021 7:30 AM BILINGUAL SALES ASSISTANT Respiratory Rate 18 02/02/2021 8:48 AM BILINGUAL SALES ASSISTANT Oxygen Saturation 100% 02/02/2021 8:48 AM BILINGUAL SALES ASSISTANT Inhaled Oxygen Concentration - - Weight 103.5 kg (228 lb 3 oz) 01/23/2021 2:24 PM BILINGUAL SALES ASSISTANT Height 180.3 cm (5' 11 ) 01/23/2021 2:24 PM BILINGUAL SALES ASSISTANT Body Mass Index 31.83 01/23/2021 2:24 PM BILINGUAL SALES ASSISTANT Plan of Treatment Not on file Insurance [facility] Address: [place] [id number] [place] [id number] [facility] [employer] [facility] Address: [address] [address] [place] [id number] Care Teams Gray Tender Relationship Specialty Start Date End Date Paradise Lombardi NP [address] [place] [phone] PCP - General Nurse Practitioner 06/02/20 Anika Burks MD [address] [facility] [address] Consulting Physician Pain Management 09/23/20
--- OUTSIDE RECORDS SUMMARY | 2024-07-02 13:50 | XMS_ITS | Clinical Summary ---
Author Organization [facility] Address [address] [place] [phone] Phone Care Team Providers Care Guest Relations Agent Name Role Phone Unavailable Primary Care Provider Unavailabl e Encounters Date Type Department Care Team Description 06/19/2024 External Device Data [facility] ABSTRACTION Provider, Abstract 05/15/2024 External Device Data [facility] ABSTRACTION Provider, Abstract 05/15/2024 External Device Data [facility] ABSTRACTION Provider, Abstract 05/15/2024 External Device Data [facility]CTION Provider, Abstract 05/15/2024 Abstract [facility] [place] [facility] [id number] [place] [address] [place] [phone] Jayne Galan, RN 05/09/2024 Telephone [facility] [address] [place] [address] [place] [phone] Chaim Groves MD Needs Appointment 05/09/2024 Abstract [facility] [address] [place] [phone] Jayne Galan, [facility] from Last 3 Months Social History Tobacco Use Types Packs/Day Years Used Date Smoking Tobacco: Never Assessed Sex and Gender Information Value Date Recorded Sex Assigned at Not on file Legal Sex Male 10:53 AM CDT Gender Identity Not on file Sexual Orientation Not on file Plan of Treatment Health Maintenance Due Date Last Done Comments DTAP/TDAP/TD VACCINES (1 - Tdap) 02/19/2000 HEPATITIS B VACCINES (1 of 3 - 19+ 3-dose series) 02/19/2000 INFLUENZA VACCINE (#1) 2023 HPV VACCINES Aged Out No longer eligi ble based on patient's age to complete this topic [place] [address] [place] [id number]
--- OUTSIDE RECORDS SUMMARY | 2024-07-02 13:50 | XMS_ITS | Encounter Summary ---
Author Organization [facility] - [facility] Address [facility] [place] [address] Care Team Providers Care Nutrition Program Instructor Name Role Phone Paradise Lombardi RENEE Primary Care Provider [phone] Encounter Details Date Type Department Care Team (Late st Contact Info) Description 05/21/2024 HeatG[employer] Message Enc [facility] Medical Group Multispecialty Care - [address], [address] [place] [address] [address], [facility] Provider Letter Social History Tobacco Use Types Packs/Day Years Used Date Smoking Tobacco: Never Passive Smoke Exposure: Never Smokeless Tobacco: Never Alcohol Use Standard Drinks/Week Comments Yes 10 (1 standard drink = 0.6 oz pu re alcohol) social 1 x week [facility] Utilities Answer Date Recorded In the past 12 months has [facility] [employer], gas, oil, or water [employer] threatened to shut off services in your [...] any time in the past 12 m [facility], were you homeless or living in a group home (including now)? No 03/27/2024 Sex and Gender Information Value Date Recorded Sex Assigned at Male 03/13/2024 1:00 PM MORGUE LIBRARIAN Legal Sex Male 5:23 PM CDT Gender Identity Male 04/20/2024 1:53 PM MORGUE LIBRARIAN Sexual Orientation Not on file documented as of this encounter Functional Status * Are you deaf or do you have serious difficulty hearing Answer Date of Assessment Author Status No 03/26/2024 3:00 PM Shraddha Moore RN Active * Are you blind or do you have serious difficulty seeing, even when wearing glasses? Answer Date of Assessment Author Status No 03/26/2024 3:00 PM Shraddha Moore RN Active * Do you have serious difficulty walking or climbing stairs? Answer Date of Assessment Author Status No 03/26/2024 3:00 PM Shraddha Moore RN Active * Do you have difficulty dressing or bathing? Answer Date of Assessment Author Status No 03/26/2024 3:00 PM MORGUE LIBRARIAN Shraddha Gandhi RN Active * Because of a physical, mental, or emotional condition, do you have difficulty doing errands alone such as visiting a doctor's office or shopping? Answer Date of Assessment Author Status No 03/26/2024 3:00 PM MORGUE LIBRARIAN Shraddha Gandhi RN Active documented as of this encounter Mental Status * Because of a physical, mental, or emotional condition, do you have serious difficulty concentrating, remembering, or making decisions? Answer Entry Date Author Status No 03/26/2024 3:00 PM MORGUE LIBRARIAN Shraddha Gandhi RN Active documented in this encounter Plan of Treatment Upcoming Encounters Date Type Department Care Team (Late st Contact Info) Description 07/24/2024 2:00 PM CDT Office Visit [facility] Medical Group Family & Internal Medicine [address] [address] Paradise Lombardi FNP [address] [place] [id number] documented as of this encounter Goals Goal Patient Goal Type Associated Problems Recent Progress Patient-Stated? Author Family - family caregiver with be involved in care transitions and discharge planning Lifestyle No Gunner Renner RN documented as of this encounter Visit Diagnoses Not on filedocumented in this encounter Additional Health Concerns Assessment Noted Time PHQ-9 Depression Total Score: 7 04/21/19 25 1:55 PM MORGUE LIBRARIAN documented as of this encounter Care Teams Nutrition Program Instructor Relationship Specialty Start Date End Date Paradise Lombardi FNP [address] [place] [id number] PCP - General Nurse Practitioner Family 04/29/20 documented as of this encounter
--- OUTSIDE RECORDS SUMMARY | 2024-07-02 13:50 | XMS_ITS | Referral Summary ---
Author Organization [facility] Address [address] [place] [address] Care Team Providers Care Manufacturing Assembler Name Role Phone Paradise Lombardi NP Primary Care Provider [phone] Anika Burks MD Unavailable Allergies No known [...] helped although no longer helps and anti-inflammatories [id number] do not either. I will obtain a [...] demonstrated on x-ray at L4-5 and L5-S1 Social History Tobacco Use Types Packs/Day Years [...] on file Legal Sex Male 11:33 PM PHARMACY GRAD INTERN Gender Identity Not on file Sexual Orientation Not on file Last Filed Vital Signs Vital Sign Reading Time Taken Comments Blood Pressure 126/80 02/02/2021 8:48 AM PHARMACY GRAD INTERN Pulse 66 02/02/2021 8:48 AM PHARMACY GRAD INTERN Temperature 36.5 C (97.7 F) 02/02/2021 7:30 AM PHARMACY GRAD INTERN Respiratory Rate 18 02/02/2021 8:48 AM PHARMACY GRAD INTERN Oxygen Saturation 100% 02/02/2021 8:48 AM PHARMACY GRAD INTERN Inhaled Oxygen Concentration - - Weight 103.5 kg (228 lb 3 oz) 01/23/2021 2:24 PM PHARMACY GRAD INTERN Height 180.3 cm (5' 11 ) 01/23/2021 2:24 PM PHARMACY GRAD INTERN Body Mass Index 31.83 01/23/2021 2:24 PM PHARMACY GRAD INTERN Plan of Treatment Not on file Insurance [facility]/PPO Address: [address] [place] [address] [facility]/PPO Address: [address] [place], [place] [id number] Care Teams Manufacturing Assembler Relationship Specialty Start Date End Date Paradise Lombardi NP [address] [place] [id number] PCP - General Nurse Practitioner 06/02/20 Anika Burks MD [address] [facility], [address] [address] Consulting Physician Pain Management 09/23/20
--- OUTSIDE RECORDS SUMMARY | 2024-07-02 13:50 | XMS_ITS | Encounter Summary ---
Author Organization [facility] Address [address] [place] [address] Care Team Providers Care Aed Trainer Name Role Phone Paradise Lombardi Primary Care Provider [phone] Encounter Details Date Type Department Care Team (Late st Contact Info) Description 05/23/2024 [employer] Message Enc [facility] Medical Group Family & Internal Medicine [address] [place] [address] Paradise Lombardi FNP [facility] [place], [place] [id number] Pain med Social History Tobacco Use Types Packs/Day Years Used Date Smoking Tobacco: Never Passive Smoke Exposure: Never Smokeless Tobacco: Never Alcohol Use Standard Drinks/Week Comments Yes 10 (1 standard drink = 0.6 oz pu re alcohol) social 1 x week [facility] Utilities Answer Date Recorded In the past 12 months has [facility] [employer], [employer], oil, or water [employer] threatened to shut off services in your [...] any time in the past 12 m [facility], were you homeless or living in a fci (including now)? No 03/27/2024 Sex and Gender Information Value Date Recorded Sex Assigned at Male 03/13/2024 1:00 PM ROTARY DRUM DYER Legal Sex Male 5:23 PM CDT Gender Identity Male 04/20/2024 1:53 PM ROTARY DRUM DYER Sexual Orientation Not on file documented as [...] 3:00 PM Shraddha Moore RN Active * Because of a physical, mental, or emotional condition, do you have difficulty doing errands alone such as visiting a doctor's office or shopping? Answer Date of Assessment Author Status No 03/26/2024 3:00 PM Shraddha Moore RN Active documented as of this encounter Mental Status * Because of a physical, mental, or emotional condition, do you have serious difficulty concentrating, remembering, or making decisions? Answer Entry Date Author Status No 03/26/2024 3:00 PM Shraddha Moore RN Active documented in this encounter Plan of Treatment Upcoming Encounters Date Type Department Care Team (Late st Contact Info) Description 07/24/2024 2:00 PM CDT Office Visit [facility] Medical Group Family & Internal Medicine [address] [address] Paradise Lombardi FNP [facility] [place] [address] documented as of this encounter Goals Goal Patient Goal Type Associated Problems Recent Progress Patient-Stated? Author Family - family caregiver with be involved in care transitions and discharge planning Lifestyle No Gunner Renner RN documented as of this encounter Visit Diagnoses Not on filedocumented in this encounter Additional Health Concerns Assessment Noted Time PHQ-9 Depression Total Score: 7 04/21/19 25 1:55 PM ROTARY DRUM DYER documented as of this encounter Care Teams Aed Trainer Relationship Specialty Start Date End Date Paradise Lombardi FNP [address] [place] [id number] PCP - General Nurse Practitioner Family 04/29/20 documented as of this encounter
--- NOTE | 2024-07-02 13:53 | ED.URI ---
HPI - URI/Sore Throat General Chief Complaint: Upper Respiratory Infection Stated Complaint: URI Time Seen by Provider: 07/02/24 13:45 Source: patient Mode of arrival: ambulatory Limitations: no limitations History of Present Illness HPI Narrative: Patient is a 44-year-old male who presents with 4 days of chest congestion with productive cough and sore throat that started 2 days ago. Cold sweats and body aches started today. History of childhood asthma and bronchitis. Has taken Mucinex with no relief. Related Data Home Medications Medication Instructions Recorded Confirmed Last Taken Type fluoxetine 10 mg capsule 10 mg PO DAILY 02/17/22 02/17/22 Unknown History hydrocodone 7.5 mg-acetaminophen 1 tablet PO Q8-10H PRN Back Pain 02/17/22 02/17/22 Unknown History 325 mg tablet fluoxetine 20 mg capsule mg 07/02/24 Unknown History phentermine 37.5 mg tablet mg 07/02/24 Unknown History Allergies Allergy/AdvReac Type Severity Reaction Status Date / Time No Known Allergies Allergy Verified 07/02/24 13:59 Review of Systems Review of Systems: All systems reviewed & are unremarkable except as noted in HPI and below Constitutional: Constitutional: Reports chills, Denies fatigue, Denies fever(s), Denies headache(s), Denies malaise and Denies weakness Eyes: Eyes: Denies blurry vision, Denies itchy eyes and Denies loss of vision ENT: Denies otalgia, Denies headache(s), Reports nasal congestion, Denies sinus pain and Reports sore throat Cardiovascular: Cardiovascular: Denies chest pain, Denies irregular heart rhythm and Denies dyspnea Respiratory: Respiratory: Reports cough and Denies dyspnea Gastrointestinal: Gastrointestinal: Denies abdominal pain, Denies diarrhea, Denies nausea and Denies vomiting Musculoskeletal: Musculoskeletal: Denies back pain, Reports myalgias and Denies arthralgias Integumentary/Breasts: Skin/Breast: Denies pruritus and Denies rash Neurologic: Denies headache(s), Denies loss of vision and Denies weakness Psychiatric: Psychiatric: Reports no additional psychiatric complaints Endocrine: Endocrine: Denies fatigue Allergic/Immunologic: Allergic/Immunologic: Denies itchy eyes PMFSH Family History Family History Father Family history of pancreatic cancer Family history of chronic obstructive pulmonary disease Family history of lung cancer Grandparent Diabetes mellitus Other Family history of allergic disorder Family history of cardiovascular disease Social History Social History Smoking status: Never smoker Second hand tobacco smoke exposure: No Alcohol intake: current Comments At time of signature, agree with nursing past medical, surgical, social and family history. There is no relevant family history pertinent to the presenting complaint. Exam Const: General: cooperative, healthy appearing, comfortable, no acute distress and well nourished Nutritional Appearance: well nourished Orientation/consciousness: patient oriented x3 Limitations: no limitations HENMT: Head: normal to inspection, normocephalic and atraumatic Ears: hearing grossly normal bilaterally, external ears normal, TM's normal bilaterally, EAC's normal and no periauricular adenopathy Face/Nose/Sinus: Normal external nose present, Abnormal mucous membranes and turbinates present erythematous bilateral and diffuse, normal facial exam, sinuses nontender and face symmetric Face and sinus: normal facial exam, sinuses nontender and face symmetric Mouth: Yes Normal oral and palatal mucosa present, Yes lip normal, Yes tongue normal, Yes Normal salivary glands and ducts present, Yes oropharynx normal and Yes moist mucous membranes Teeth and gingiva: dentition normal Throat: posterior oropharynx normal, tonsils normal and uvula midline Eyes: General: appearance normal, both eyes and all related structures Alignment and Position: alignment normal and position normal Periorbital: periorbital findings normal Eyelids: eyelids normal Pupils: Equal, round and reactive pupils present Neck: Neck: normal visual inspection, full ROM, no lymphadenopathy and supple Chest: Chest palpation & inspection: normal inspection of the chest and normal palpation of entire chest wall Resp: Effort & Inspection: normal respiratory effort, able to speak in complete sentences and Actively coughing wet Auscultation: clear to auscultation bilaterally, no crackles, no rales, no rhonchi and no wheezes Cardio: Rate: tachycardic Rhythm: regular rhythm Heart sounds: S1 normal heart sound present and S2 normal heart sound present GI: Inspection: normal to inspection Skin: General skin exam: normal color and no rashes or lesions noted Neuro: General: patient oriented x3 and moves all extremities Cranial nerves: Yes Equal, round and reactive pupils present Speech: normal speech Gait exam (Neuro): Normal gait present Extrem: General: normal to inspection, full ROM and no edema Psych: Appearance: grossly normal and well kempt Mental Status: mental status grossly normal Speech and movement: Normal speech and movement present Affect: normal affect Attitude: cooperative Thought process: Normal thought process present Course Course Emergency Course: Discharge instructions reviewed with patient, as well as provided in writing per nursing staff. The instructions also include specific and strict return/GO TO THE ER as well as f/u information. All questions have been answered, and the patient deny any further questions with discharge and discharge plan. Portions of this record may have been created with voice recognition software Level of Care: Express Care Visit Vital Signs Vital signs: Vital Signs Temperature 37.1 C 07/02/24 13:59 Pulse Rate 124 H 07/02/24 13:59 Respiratory Rate 18 07/02/24 13:59 Blood Pressure 129/79 07/02/24 13:59 Pulse Oximetry 98 07/02/24 13:59 Oxygen Delivery Room Air 07/02/24 13:59 Temperature 37.1 C 07/02/24 13:59 Pulse Rate 124 H 07/02/24 13:59 Respiratory Rate 18 07/02/24 13:59 Blood Pressure 129/79 07/02/24 13:59 Pulse Oximetry 98 07/02/24 13:59 Oxygen Delivery Room Air 07/02/24 13:59 Reviewed MDM - URI/Sore Throat MDM Narrative Medical decision making narrative: Pt well hydrated appearing, in no respiratory distress, hemodynamically stable. Recommend supportive care. The patient is stable at time of discharge the clinical impression was discussed and the patient was given the opportunity to ask questions, which were addressed as completely as possible given the information available at present. Anticipatory guidance and return to care precautions were discussed and the importance of primary care follow-up was stressed and encouraged. The patient voiced understanding of the plan, indications to return, and the need for follow-up. Exam findings show no acute concerns or changes Patient is appropriate for outpatient treatment and follow-up. Differential diagnosis considered: Mcbride virus, strep pharyngitis, allergic rhinitis, upper respiratory tract infection, sinusitis, rhinosinusitis, nasopharyngitis. viral pharyngitis, otitis media, otitis externa, otitis effusion, foreign body, cerumen impaction, viral syndrome, and influenza. Medical Records Attestation: I reviewed the patient's medical records. Lab Data Attestation: I reviewed the patient's lab results. Labs: Lab Results 07/02/24 Range/Units 14:24 POC Influenza A Ag Negative (Negative) POC Influenza B Ag Negative (Negative) Discharge Plan Discharge Clinical Impression: Acute purulent bronchitis Patient Disposition: Home Condition: Stable Instructions: Acute Bronchitis (ED) Additional Instructions: Take steroids per package instructions. Use Tessalon Perles as needed for cough. Use inhaler with spacer as needed. Other symptomatic treatments include: -Alternate Tylenol and Motrin per package directions for fever or pain: Tylenol 650-1000mg by mouth every 4-6 hours. Do not exceed 4000mg in 24 hours. Advil (Ibuprofen) 600 mg by mouth every 6 hours. Do not exceed 2400mg in 24 hours. 8 AM: Tylenol 11 AM: Ibuprofen 2 PM: Tylenol 5 PM: Ibuprofen 8 PM: Tylenol 11 PM: Ibuprofen 2 AM: Tylenol 5 AM: Ibuprofen -Antihistamine medication such as Benadryl at night and Zyrtec/Claritin/Chelo during the day can help improve symptoms. -Use Flonase twice a day for 5 days then daily to help reduce the inflammation and dry up your sinuses. -You can also use Sudafed or Mucinex. Be sure to drink plenty of water with these medications at least 8 ounces with every dose and it is important to drink 8 to 10 glasses of water per day. Water is a natural decongestant -Eat and drink things that are easy to swallow, like tea or soup, or popsicles. -Oral rinses such as: Salt water gargles and/or may use topical anesthetic (eg. Chloraseptic spray) or lozenges to relieve dryness or throat pain). -Frequent hand washing or hand manager respiratory care is one of the best ways to prevent spread of infection. -Using a vaporizer or humidifier at night will also help thin secretions and help with coughing up phlegm. Call your Primary Care Doctor and make a follow-up appointment in 3 days. If your cough worsens, you develop a fever greater than 103, you develop shaking chills, a fast heartbeat, trouble breathing and/or feel you are are breathing much faster than usual, call your Primary Care Doctor or go to the ER. Patient Language: Kyrgyz Prescriptions: New benzonatate 100 mg capsule 100 mg PO BID PRN (Reason: cough) Qty: 14 0RF methylprednisolone [Medrol (Ambrosio)] 4 mg tablets,dose pack See Rx Instructions .ROUTE .COMPLEX Qty: 21 0RF Rx Instructions: orally per package directions albuterol sulfate 90 mcg/actuation HFA aerosol inhaler 2 puff inhalation QID PRN (Reason: shortness of breath or wheezing) Qty: 6.7 0RF (DME) Aerochamber MV Spacer See Rx Instructions .Route Qty: 1 0RF Rx Instructions: As directed No Action fluoxetine 10 mg capsule 10 mg PO DAILY hydrocodone-acetaminophen 7.5-325 mg tablet 1 tablet PO Q8-10H PRN (Reason: Back Pain) phentermine 37.5 mg tablet fluoxetine 20 mg capsule Follow-up/Referrals: KELSY,CHICHO HOBSON [Primary Care Provider] - 3 Days Stand Alone Forms: Work/School Release IP Time of Disposition: 14:23
[2024-07-02 13:59] VITALS: BP 129/79; PULSE 124; RESP 18; TEMP 37.1; O2SAT 98
[2024-07-02 14:26] LABS: EDINFLUASCREEN Negative (Negative); EDINFLUBSCREEN Negative (Negative)
== END 2024-07-02 14:26 | disposition home or self-care (01) ==
PROVIDERS: Emergency Provider Nurse Practitioner Family; PCP Nurse Practitioner Family
DX: J20.9 Acute bronchitis, unspecified (principal)
CPT/HCPCS: 87804; 99213; G0463